=== PATIENT | female | born 1970 | race Hispanic/Latino ===

== ENCOUNTER 2023-11-22 22:18 | Emergency (ER) | payer MEDICAID ==
[2023-11-22] MEDS ORDERED: Ibuprofen 200 MG TAB ONE (23:02)
== END 2023-11-22 23:15 | disposition home or self-care (01) ==
LOC: ERS 22:18
DX: R51.9 Headache, unspecified (principal); M79.604 Pain in right leg; I10 Essential (primary) hypertension; Z79.899 Other long term (current) drug therapy
CPT/HCPCS: 70450